=== PATIENT | male | born 1930 | race Caucasian/White ===

== ENCOUNTER 2018-02-07 21:09 | Emergency (ER) | payer MEDICARE, OTHER ==
[~2018-02-07] VITALS: Ht 175.3 cm; Wt 80.3 kg
[~2018-02-07 21:09] MED LIST: ACETAMINOPHEN500 M5 PO; ASPIRIN81 M3 PO; BISACODYL10 M1 RC; CELEBREX200 MG ORAL; CENTRAL VITE F1 EACH PO; CORTEF10 MG ORAL; DEMECLOCYCLINE150 MG PO; DIFLUCAN100 MG ORAL; DOCUSATE SODIU100 M2 ORAL; FLAGYL500 MG ORAL; HEPARIN SO5000 UNIT2 SUBQ; HYDROCORTISONE20 MG ORAL; LEVOFLOXACIN500 MG ORAL; LOVENOX10 M4 SUBQ; PANTOPRAZOLE SO40 MG ORAL; TAMSULOSIN HCL0.4 MG ORAL; ZOFRAN8 MG ORAL; ZOLPIDEM TARTRAT5 MG ORAL
[2018-02-07] MEDS ORDERED: Cephalexin 500mg cap ORAL ONE (22:00)
[2018-02-07] MEDS ORDERED: Phenazopyridine 200mg tab ORAL ONE (22:00)
[2018-02-07 22:26] LABS: APPEARANCE,URINE CLOUDY; BILIRUBIN, URINE NEGATIVE (NEGATIVE); COLOR,URINE PALE YELLOW; GLUCOSE, URINE (UA) NEGATIVE (NEGATIVE); KETONES,URINE NEGATIVE (NEGATIVE); LEUKOCYTE ESTERASE ,URINE 3+ (NEGATIVE); NITRITE,URINE NEGATIVE (NEGATIVE); PH,URINE 6.5 (4.5-8.0); PROTEIN,URINE 2+ (NEGATIVE); UROBILINOGEN,URINE NORMAL MG/DL (0.0-1.0)
[2018-02-07] MEDS ORDERED: PHENAZOPYRIDIN100 MG ORAL (22:52)
[2018-02-07] MEDS ORDERED: KEFLEX500 MG ORAL (22:52)
--- NOTE | 2018-02-07 22:52 | Emergency Room Report ---
History of Present Illness General Chief Complaint: Male Urogenital Problems Source: Patient, Family Member Present Illness HPI Is an 87-year-old male brought in by son with chief complaint of dysuria and frequency. Onset yesterday. No nausea no vomiting. No back pain. No fever. Denies any other complaint. Worse with urination. Allergies: Coded Allergies: No Known Allergies (Unverified , 04/12/15) Patient History Past Medical History: see triage record, old chart reviewed Past Surgical History: other Pertinent Family History: none Social History: Denies: smoking Immunizations: other Reviewed Nursing Documentation: PMH: Agreed, PSxH: Agreed Nursing Documentation-PMH Hx Cardiac Problems: Yes Hx Hypertension: Yes Hx COPD: No - weakness Hx Cancer: No Hx Gastrointestinal Problems: Yes Hx Neurological Problems: No Hx Weakness: Yes Hx Fatigue: Yes Review of Systems Eye: Denies: eye pain, blurred vision ENT: Denies: ear pain, nose congestion, throat swelling Respiratory: Denies: cough, shortness of breath Cardiovascular: Denies: chest pain, palpitations Gastrointestinal: Denies: abdominal pain, diarrhea, nausea, vomiting Genitourinary: Reports: dysuria, frequency Musculoskeletal: Denies: back pain, joint pain Skin: Denies: rash Neurological: Denies: headache, numbness Endocrine: Denies: increased thirst, increased urine Hematologic/Lymphatic: Denies: easy bruising All Other Systems: negative except mentioned in HPI Physical Exam Vital Signs Date Time Temp Pulse Resp B/P (MAP) Pulse Ox O2 Delivery O2 Flow Rate FiO2 02/07/18 21:35 98.1 71 16 184/87 95 Room Air 98.1 vitals with high blood pressure Sp02 EP Interpretation: reviewed, normal General Appearance: well appearing, no apparent distress, alert Head: normocephalic, atraumatic Eyes: bilateral eye PERRL, bilateral eye EOMI ENT: hearing grossly normal, normal pharynx Neck: full range of motion, supple, no meningismus Respiratory: chest non-tender, lungs clear, normal breath sounds Cardiovascular #1: regular rate, rhythm, no murmur Gastrointestinal: normal bowel sounds, non tender, no mass, no organomegaly, no bruit, non-distended Musculoskeletal: back normal, gait/station normal, normal range of motion Psychiatric: mood/affect normal Skin: warm/dry Medical Decision Making Diagnostic Impression: Primary Impression: UTI (lower urinary tract infection) Additional Impression: Hypertension Qualified Codes: I10 - Essential (primary) hypertension ER Course Patient with urinary tract infection. No evidence of pyelonephritis. Better now. We'll discharge home. Last Vital Signs Date Time Temp Pulse Resp B/P (MAP) Pulse Ox O2 Delivery O2 Flow Rate FiO2 02/07/18 21:35 98.1 71 16 184/87 95 Room Air 98.1 Status: improved Disposition: HOME, SELF-CARE Condition: Stable Scripts Phenazopyridine Hcl* (PYRIDIUM*) 100 Mg Tablet 100 MG ORAL THREE TIMES A DAY, #6 TAB Prov: QI CLINE M.D. 02/07/18 Cephalexin* (KEFLEX*) 500 Mg Capsule 500 MG ORAL TID, #21 CAP 0 Refills Prov: QI CLINE M.D. 02/07/18 Referrals: RESHMA YANG (PCP) Patient Instructions: Urinary Tract Infection Additional Instructions: Follow-up with your Dr. in 3-5 days. Your urine will turn an orangy color. Do not be concern. Return if symptom worsen. QI CLINE M.D. Feb 07, 2018 22:52
[2018-02-07 22:58] VITALS: BP 165/85
== END 2018-02-07 22:58 | disposition home or self-care (01) ==
LOC: EMR 21:57
DX: N39.0 Urinary tract infection, site not specified (principal); I10 Essential (primary) hypertension
CPT/HCPCS: 81003; 87086; 87181; 99284

== ENCOUNTER 2018-07-03 20:07 | Inpatient (IN) | payer MEDICARE ==
[~2018-07-03] VITALS: Ht 175.3 cm; Wt 77.1 kg
[~2018-07-03 20:07] MED LIST changes: +KEFLEX500 MG ORAL; +PHENAZOPYRIDIN100 MG ORAL
[2018-07-03] MEDS ORDERED: NKM (20:24)
[2018-07-03] MEDS ORDERED: Azithromycin 500 MG in NS 275 ML IV SCH (20:45)
[2018-07-03] MEDS ORDERED: Albuterol ud Inhalation HHN ONE (20:45)
[2018-07-03] MEDS ORDERED: cefTRIAXone 1 GM in NS 55 ML IV SCH (20:45)
[2018-07-03 21:13] LABS: BASOPHILS % (AUTO) 1.3 % (0.0-2.0); EOSINOPHILS % (AUTO) 8.7 % (0.0-3.0); HEMATOCRIT 37.3 % (42.0-52.0); HEMOGLOBIN 12.5 G/DL (14.2-18.0); LYMPHOCYTES % (AUTO) 18.3 % (20.0-45.0); MEAN CORPUSCULAR VOLUME 98 FL (80-99); MONOCYTES % (AUTO) 8.2 % (1.0-10.0); NEUTROPHILS % (AUTO) 63.5 % (45.0-75.0); PLATELET COUNT 216 K/UL (150-450); RED BLOOD COUNT 3.81 M/UL (4.70-6.10); RED CELL DISTRIBUTION WIDTH 10.9 % (11.6-14.8); WHITE BLOOD COUNT 9.1 K/UL (4.8-10.8)
[2018-07-03 21:18] LABS: ANION GAP 8 mmol/L (5-15); BLOOD UREA NITROGEN 18 mg/dL (7-18); CALCIUM 9.5 MG/DL (8.5-10.1); CARBON DIOXIDE 26 MMOL/L (21-32); CHLORIDE 101 MMOL/L (98-107); POTASSIUM 4.3 MMOL/L (3.5-5.1); SODIUM 134 MMOL/L (136-145)
[2018-07-03 21:29] LABS: ALANINE AMINOTRANSFERASE 16 U/L (12-78); ALBUMIN 3.6 G/DL (3.4-5.0); ALBUMIN/GLOBULIN RATIO 0.8 (1.0-2.7); ALKALINE PHOSPHATASE 56 U/L (46-116); ASPARTATE AMINO TRANSFERASE 16 U/L (15-37); BILIRUBIN,TOTAL 0.3 MG/DL (0.2-1.0)
[2018-07-03] MEDS ORDERED: Solu-MEDROL 125mg Inj IVP ONE (21:30)
[2018-07-03] MEDS ORDERED: Isovue-370 150ml vial INJ PRN (21:30)
[2018-07-03 21:50] LABS: APPEARANCE,URINE CLEAR; BILIRUBIN, URINE NEGATIVE (NEGATIVE); COLOR,URINE YELLOW; GLUCOSE, URINE (UA) NEGATIVE (NEGATIVE); KETONES,URINE NEGATIVE (NEGATIVE); LEUKOCYTE ESTERASE ,URINE 3+ (NEGATIVE); NITRITE,URINE NEGATIVE (NEGATIVE); PH,URINE 6.5 (4.5-8.0); PROTEIN,URINE 1+ (NEGATIVE); UROBILINOGEN,URINE NORMAL (NORMAL)
[2018-07-03] MEDS ORDERED: MULTIVITAMINS1 EAC2 ORAL (22:26)
[2018-07-03 22:37] VITALS: BP 119/57
--- NOTE | 2018-07-03 22:40 | Emergency Room Report ---
History of Present Illness General Chief Complaint: Dyspnea/Respdistress Source: Patient Present Illness HPI Patient is an 88-year-old male brought in by family member after increased difficulty breathing. The patient noted have increased difficulty breathing over the past few days associated with frothy sputum. The patient noticed increased leg swelling bilaterally. This had gradual onset. He reported having increased swelling since it began becoming hot. The patient had no known prior lung history. He does not use oxygen at home. The patient does not take inhalers regularly. He reported having increased difficulty breathing for approximately one week. Allergies: Coded Allergies: No Known Allergies (Unverified , 04/12/15) Patient History Past Medical History: see triage record Reviewed Nursing Documentation: PMH: Agreed; PSxH: Agreed Nursing Documentation-PMH Hx Cardiac Problems: Yes Hx Hypertension: Yes Hx COPD: No - weakness Hx Cancer: No Hx Gastrointestinal Problems: Yes Hx Neurological Problems: No Hx Weakness: Yes Hx Fatigue: Yes Review of Systems All Other Systems: negative except mentioned in HPI Physical Exam Vital Signs Date Time Temp Pulse Resp B/P (MAP) Pulse Ox O2 Delivery O2 Flow Rate FiO2 07/03/18 20:18 97.8 71 20 91/48 91 Room Air 97.9 07/03/18 20:49 2.0 28 Sp02 EP Interpretation: reviewed, normal General Appearance: normal inspection, well appearing, no apparent distress, alert Head: atraumatic ENT: normal ENT inspection, hearing grossly normal, normal voice Neck: normal inspection, full range of motion, supple, no bony tend Respiratory: normal inspection, no respiratory distress, no retraction, wheezing Cardiovascular #1: regular rate, rhythm, edema Gastrointestinal: normal inspection, normal bowel sounds, non tender, soft, no guarding, no hernia Genitourinary: no CVA tenderness Musculoskeletal: normal inspection, back normal, normal range of motion Neurologic: normal inspection, alert, responsive, speech normal Psychiatric: normal inspection, judgement/insight normal, mood/affect normal Skin: no rash, other - left leg rash Medical Decision Making Diagnostic Impression: Primary Impression: Pneumonia Additional Impression: Hypoxia ER Course Patient presented for shortness of breath.Differential included but was not limited to anemia, pneumonia, pneumothorax, myocardial infarction, pericardial effusion, congestive heart failure, acidosisBecause of complexity of patient's case laboratory testing and imaging studies were ordered.The patient was given IV steroids as well as breathing treatment. Chest x-ray one view interpreted by me showed bilateral basal infiltrates with normal cardiac size. The patient was given IV antibiotics for possible infiltrate. CT of the chest was ordered due to patient's recent leg swelling and possible pulmonary embolism.The patient was noted to have remote history of smoking cigarettes.Dr. Luis Daniel Luna was contacted for inpatient management pending CT. CT the chest read by radiology showed no evidence of pulmonary embolism no thoracic aortic dissection or aneurysm subpleural reticular and cystic changes throughout both lungs subcentimeter mediastinal and hilar lymph nodes the layering stones and sludge within the gallbladder Labs Test 07/03/18 20:50 07/03/18 21:35 White Blood Count 9.1 K/UL (4.8-10.8) Red Blood Count 3.81 M/UL (4.70-6.10) Hemoglobin 12.5 G/DL (14.2-18.0) Hematocrit 37.3 % (42.0-52.0) Mean Corpuscular Volume 98 FL (80-99) Mean Corpuscular Hemoglobin 32.7 PG (27.0-31.0) Mean Corpuscular Hemoglobin Concent 33.4 G/DL (32.0-36.0) Red Cell Distribution Width 10.9 % (11.6-14.8) Platelet Count 216 K/UL (150-450) Mean Platelet Volume 5.5 FL (6.5-10.1) Neutrophils (%) (Auto) 63.5 % (45.0-75.0) Lymphocytes (%) (Auto) 18.3 % (20.0-45.0) Monocytes (%) (Auto) 8.2 % (1.0-10.0) Eosinophils (%) (Auto) 8.7 % (0.0-3.0) Basophils (%) (Auto) 1.3 % (0.0-2.0) Prothrombin Time 10.2 SEC (9.30-11.50) Prothromb Time International Ratio 1.0 (0.9-1.1) Activated Partial Thromboplast Time 27 SEC (23-33) Sodium Level 134 MMOL/L (136-145) Potassium Level 4.3 MMOL/L (3.5-5.1) Chloride Level 101 MMOL/L (98-107) Carbon Dioxide Level 26 MMOL/L (21-32) Anion Gap 8 mmol/L (5-15) Blood Urea Nitrogen 18 mg/dL (7-18) Creatinine 1.0 MG/DL (0.55-1.30) Estimat Glomerular Filtration Rate mL/min (>60) Glucose Level 98 MG/DL (74-106) Calcium Level 9.5 MG/DL (8.5-10.1) Total Bilirubin 0.3 MG/DL (0.2-1.0) Aspartate Amino Transf (AST/SGOT) 16 U/L (15-37) Alanine Aminotransferase (ALT/SGPT) 16 U/L (12-78) Alkaline Phosphatase 56 U/L (46-116) Troponin I 0.000 ng/mL (0.000-0.056) Pro-B-Type Natriuretic Peptide 156 pg/mL (0-125) Total Protein 8.1 G/DL (6.4-8.2) Albumin 3.6 G/DL (3.4-5.0) Globulin 4.5 g/dL Albumin/Globulin Ratio 0.8 (1.0-2.7) Urine Color Yellow Urine Appearance Clear Urine pH 6.5 (4.5-8.0) Urine Specific [place] 1.010 (1.005-1.035) Urine Protein 1+ (NEGATIVE) Urine Glucose (UA) Negative (NEGATIVE) Urine Ketones Negative (NEGATIVE) Urine Occult Blood 3+ (NEGATIVE) Urine Nitrite Negative (NEGATIVE) Urine Bilirubin Negative (NEGATIVE) Urine Urobilinogen Normal MG/DL (NORMAL) Urine Leukocyte Esterase 3+ (NEGATIVE) Urine RBC 5-10 /HPF (0 - 0) Urine WBC 2-4 /HPF (0 - 0) Urine Squamous Epithelial Cells None /LPF (NONE/OCC) Urine Bacteria Few /HPF (NONE) Last Vital Signs Date Time Temp Pulse Resp B/P (MAP) Pulse Ox O2 Delivery O2 Flow Rate FiO2 07/03/18 21:19 72 16 94 Nasal Cannula 2.0 28 07/03/18 20:18 97.8 91/48 97.9 Status: unchanged Disposition: ADMITTED INPATIENT Condition: Serious Referrals: RESHMA YANG (PCP) Cyrus Clark MD Jul 03, 2018 22:40
[2018-07-03] MEDS ORDERED: Zolpidem 5mg tab ORAL PRN (23:30)
[2018-07-03] MEDS: Heparin 5000 units/ml inj SUBQ SCH (23:56)
[2018-07-04] VITALS: BP 127/75
--- NOTE | 2018-07-04 00:45 | Consultation ---
DATE OF CONSULTATION: 07/03/2018 CARDIOLOGY CONSULTATION CONSULTING PHYSICIAN: Trino Gaines M.D. REFERRING PHYSICIAN: Luis Daniel Luna M.D. REASON FOR CONSULTATION: Conduction system disease of the heart in the setting of acute respiratory insufficiency. HISTORY: This is an 88-year-old white male, who is a former smoker and has some degree of obstructive lung disease, who presented to the hospital with progressive cough, congestion, and shortness of breath. He has not had any chest pain. No leg swelling. He has been compliant with medications. He has not had any fevers or chills, but has had increasing sputum production. PAST MEDICAL HISTORY: Includes hypertension, prostatic hypertrophy, hyponatremia, insomnia, osteoarthritis. ALLERGIES: None. MEDICATIONS: Prior to admission, reviewed and reconciled. FAMILY HISTORY: Noncontributory. SOCIAL HISTORY: Former smoker. Social alcohol. No substance abuse. REVIEW OF SYSTEMS: No loss of vision or hearing. No history of diabetes or thyroid disorder. No history of seizure or stroke. No history of heart attack. No history of dizziness, loss of consciousness, or weakness. No history of irregular heartbeats. No history of rheumatic heart disease. No history of blood clots in the legs. He does have morning cough. He has been a smoker in the past. He does have some degree of "asthma." No history of blood clotting. No history of melena, bright red blood per rectum, or colon cancer. No history of prostate cancer. He does have prostatic hypertrophy. PHYSICAL EXAMINATION: VITAL SIGNS: Blood pressure 119/57, pulse 76, respiratory rate 20, afebrile, room air oxygen saturations are 94%. HEENT: Conjunctivae pink. Sclerae are anicteric. Oropharynx clear. NECK: Supple. No accessory muscle use. No adenopathy. No jugular venous distention. LUNGS: With coarse breath sounds and rhonchi. CARDIAC: Regular rhythm and rate. Normal S1, S2 with a fourth heart sound. ABDOMEN: Soft, nontender. EXTREMITIES: No edema. Good distal pulses. NEUROLOGIC: Nonfocal. LABORATORY DATA: White count 9, hemoglobin 12.5. Sodium 134, potassium 4.3, bicarbonate 26, BUN 18, creatinine 1. Natriuretic peptide 156. Troponin zero. Albumin 3.6. Urinalysis with only 2-4 white cells, 5-10 red cells. Chest x-ray reveals bilateral basilar infiltrates. CT angiogram of the chest was negative. EKG reveals sinus rhythm, first-degree AV block, intraventricular conduction delay. IMPRESSION: 1. Community-acquired pneumonia. 2. Paroxysmal bronchospasm. 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 5. History of hypertension. 6. History of on demeclocycline. PLAN: 1. Cardiac monitoring. 2. Broad-spectrum antibiotics. 3. Respiratory hygiene. 4. Bronchodilators. 5. Sputum cultures. 6. Hold antihypertensives. 7. Cautiously hydrate with saline. 8. DVT prophylaxis. 9. Continue aspirin prophylaxis. 10. Further recommendations to follow based on clinical course. Trino Gaines M.D. DR: Jena JOB#: [id number] CC: Jimbo Peres M.D.; Fax#: [phone]
[2018-07-04] MEDS: Albuterol/Ipratropium 3ml neb HHN SCH ×5 (02:53→21:21)
[2018-07-04 04:00] VITALS: BP 106/57
[2018-07-04 06:11] LABS: HEMATOCRIT 36.8 % (42.0-52.0); HEMOGLOBIN 12.7 G/DL (14.2-18.0); MEAN CORPUSCULAR VOLUME 98 FL (80-99); PLATELET COUNT 207 K/UL (150-450); RED BLOOD COUNT 3.74 M/UL (4.70-6.10); RED CELL DISTRIBUTION WIDTH 10.9 % (11.6-14.8); WHITE BLOOD COUNT 5.2 K/UL (4.8-10.8)
[2018-07-04 06:57] LABS: ALANINE AMINOTRANSFERASE 15 U/L (12-78); ALBUMIN 3.3 G/DL (3.4-5.0); ALBUMIN/GLOBULIN RATIO 0.7 (1.0-2.7); ALKALINE PHOSPHATASE 52 U/L (46-116); ANION GAP 9 mmol/L (5-15); ASPARTATE AMINO TRANSFERASE 18 U/L (15-37); BILIRUBIN,TOTAL 0.3 MG/DL (0.2-1.0); BLOOD UREA NITROGEN 19 mg/dL (7-18); CARBON DIOXIDE 27 MMOL/L (21-32); CHLORIDE 102 MMOL/L (98-107); CREATININE 1.2 MG/DL (0.55-1.30); POTASSIUM 4.2 MMOL/L (3.5-5.1); SODIUM 138 MMOL/L (136-145)
[2018-07-04 08:00] VITALS: BP 126/63
[2018-07-04] MEDS ORDERED: Cefepime HCl 1 GM in D5W 55 ML IVPB SCH (09:00)
[2018-07-04] MEDS: Solu-MEDROL 40mg Inj IVP SCH ×2 (09:16→20:48)
[2018-07-04] MEDS: Aspirin Baby 81mg ORAL SCH (09:16)
[2018-07-04] MEDS: Cefepime HCl 1 GM in D5W 55 ML IVPB SCH ×2 (09:17→20:48)
[2018-07-04] MEDS: Heparin 5000 units/ml inj SUBQ SCH ×2 (09:18→21:58)
--- NOTE | 2018-07-04 10:10 | Diagnostic Imaging Report ---
Indication: Shortness of breath Technique: CT pulmonary angiogram performed utilizing automated exposure control with intravenous contrast. Axial, sagittal and coronal reconstructions were obtained. 3-D volumetric reconstructions were also performed. CT dose: Total DLP 754.92 mGycm; CTDI vol 20.91 mGy Comparison: No prior CT angiogram the chest available for comparison. Correlation made to images of the chest from CT of the chest/abdomen and pelvis 04/17/2015 Findings: There is adequate opacification of the pulmonary arteries. There is no pulmonary embolism. The main pulmonary artery is normal in caliber. Thoracic aorta normal in caliber with overall mild atherosclerotic calcification. No evidence of aortic dissection. Visualized portions of the common carotid and subclavian arteries are patent and normal in caliber bilaterally, with some atherosclerotic calcifications in the origins. Bilateral vertebral arteries are patent and normal in caliber. Is portions of the abdominal aorta are normal in caliber. There is subpleural reticular and cystic changes throughout the lungs with a peripheral and basilar predominance consistent with pulmonary fibrosis and similar to the prior exam but slightly progressed. There is some scattered foci of bronchial wall thickening and mucous plugging, most pronounced in the bilateral lower lobes. There is no pleural effusion or pneumothorax. Heart size within normal limits and stable compared to the prior exam. No cardial effusion. There are small nonspecific subcentimeter mediastinal lymph nodes. Imaged portions of the thyroid grossly unremarkable. There is interposition of the colon anterior to the liver. There is layering sludge partially visualized in the gallbladder. No CT evidence to suggest acute cholecystitis. Simple partially visualized in the upper pole the left kidney. Mild dilatation of the visualized portions of the left-sided collecting system, similar to the prior exam. There is extensive degenerative change of the bilateral shoulders and thoracic spine. There are unchanged compression deformities of the T11 and T9 vertebral bodies. No acute osseous abnormality is identified. IMPRESSION: * No pulmonary embolism. * No thoracic aortic aneurysm or dissection. * Pulmonary fibrosis with peripheral and basilar predominance, slightly progressed compared to prior exam of 04/17/2015. * Scattered foci of bronchial wall thickening and some mucous plugging in the bilateral lower lobes. Consider bronchitis. Correlate clinically. * Layering stones and sludge within the partially visualized gallbladder. No CT evidence to suggest acute cholecystitis. * Degenerative change of the spine with unchanged compression deformities of the T9 and T11 vertebral bodies. The CT scanner at [facility] is accredited by the [employer] and the scans are performed using protocols designed to limit radiation exposure to as low as reasonably achievable to attain images of sufficient resolution adequate for diagnostic evaluation.
--- NOTE | 2018-07-04 10:14 | Diagnostic Imaging Report ---
Indication: Shortness of breath Technique: XRAY Chest 1v Comparison: 04/26/2015 Findings: Heart size and mediastinal contours stable. Atherosclerotic calcification is again noted in the aorta. Interstitial and linear opacities again noted in the lungs with a peripheral and basilar predominance system with pulmonary fibrosis noted on prior chest CT. These findings have progressed slightly compared to the prior exam. Some areas of increased density in the bilateral bases likely relate to areas of increased confluent fibrosis however superimposed infection not excluded. No pneumothorax or definite pleural effusion. There are degenerative changes of the shoulders and multilevel degenerative changes of the spine with some unchanged compression deformities in the lower thoracic spine. IMPRESSION: Findings consistent with pulmonary fibrosis noted on prior CT, with interval progression. Some increased density at the bilateral bases possibly related to areas of confluent fibrosis however superimposed infection not excluded. Correlate clinically.
[2018-07-04 12:00] VITALS: BP 123/64
[2018-07-04] MEDS ORDERED: Vitamin A&D Oint 2oz Tube TOPIC PRN (12:30)
[2018-07-04 16:00] VITALS: BP 125/66
[2018-07-04 20:00] VITALS: BP 126/71
[2018-07-04] MEDS ORDERED: Tamsulosin 0.4mg cap ORAL SCH (21:00)
[2018-07-04] MEDS ORDERED: Azithromycin 500 MG in D5W 275 ML IV SCH (22:00)
--- NOTE | 2018-07-04 23:15 | History and Physical Report ---
DATE OF ADMISSION: 07/03/2018 HISTORY OF PRESENT ILLNESS: This is an 88-year-old male, who was brought in from his home with complaints of chest congestion. The patient was seen and worked up and found to have evidence of pneumonia. He is admitted to the hospital. He is currently on oxygen. The patient reports that he had been feeling unwell for the last few days with chest congestion and shortness of breath. He also reported a low-grade fever. PAST MEDICAL HISTORY: Hypertension, BPH, insomnia, and osteoarthrosis. HOME MEDICATIONS: Includes Flomax and Ambien only. ALLERGIES: None reported. SOCIAL HISTORY: He has been a smoker in the past. Denies substance abuse or alcohol. REVIEW OF SYSTEMS: Denies any headaches, hematemesis, melena, or hematochezia. PHYSICAL EXAMINATION: GENERAL: Reveals an elderly male. HEENT: Unremarkable. CHEST: Clear breath sounds bilaterally. ABDOMEN: Soft. EXTREMITIES: There is no edema. NEUROLOGIC: Nonfocal. LABORATORY DATA: Lab testing shows white count of 9000 and hemoglobin of 12. Creatinine of 1. X-ray of the chest shows bibasilar infiltrates. CT angio was obtained, which was negative. EKG shows first-degree AV block. IMPRESSION: 1. Pneumonia. 2. Bronchospastic lung disease. 3. Questionable underlying chronic obstructive pulmonary disease. 4. Hypertension. 5. Chronic hyponatremia. DISCUSSION: Continue home medications. I will initiate cardiac monitoring, broad-spectrum antibiotics, pulmonary hygiene, and oxygen. We will follow carefully. He is presently on cefepime and azithromycin. Check laboratories in a.m. Luis Daniel Luna M.D. DR: KARRI JOB#: [id number] CC:
[2018-07-05] VITALS: BP 123/73
[2018-07-05] MEDS: Albuterol/Ipratropium 3ml neb HHN SCH ×4 (00:30→10:25)
[2018-07-05 04:00] VITALS: BP 128/70
[2018-07-05 07:37] LABS: HEMATOCRIT 32.8 % (42.0-52.0); HEMOGLOBIN 11.2 G/DL (14.2-18.0); MEAN CORPUSCULAR VOLUME 98 FL (80-99); PLATELET COUNT 209 K/UL (150-450); RED BLOOD COUNT 3.33 M/UL (4.70-6.10); WHITE BLOOD COUNT 9.8 K/UL (4.8-10.8)
[2018-07-05 07:51] LABS: ANION GAP 9 mmol/L (5-15); BLOOD UREA NITROGEN 20 mg/dL (7-18); CALCIUM 8.4 MG/DL (8.5-10.1); CARBON DIOXIDE 25 MMOL/L (21-32); CHLORIDE 104 MMOL/L (98-107); CREATININE 1.1 MG/DL (0.55-1.30); POTASSIUM 3.8 MMOL/L (3.5-5.1); SODIUM 138 MMOL/L (136-145)
[2018-07-05 08:00] VITALS: BP 128/64
--- NOTE | 2018-07-05 08:35 | Pulmonology Progress Note ---
Assessment/Plan Assessment/Plan IMPRESSION: 1. Doubt pneumonia. CT chest shows pulmonary fibrosis 2. Bronchospastic lung disease. 3. Suspect pulmonary fibrosis 4. Hypertension. 5. Chronic hyponatremia. DISCUSSION: Continue home medications. DC home. Empiric azithromycin. Check RA SaO2 Subjective Interval Events: Feeling better Constitutional: Reports: no symptoms HEENT: Repors: no symptoms Respiratory: Reports: dry cough Cardiovascular: Reports: no symptoms Gastrointestinal/Abdominal: Reports: no symptoms Genitourinary: Reports: no symptoms Allergies: Coded Allergies: No Known Allergies (Unverified , 04/12/15) Objective Last 24 Hour Vital Signs Date Time Temp Pulse Resp B/P (MAP) Pulse Ox O2 Delivery O2 Flow Rate FiO2 07/05/18 07:35 95 Nasal Cannula 2.0 07/05/18 07:35 Nasal Cannula 2.0 28 07/05/18 07:35 Nasal Cannula 2.0 28 07/05/18 07:35 Nasal Cannula 2.0 28 07/05/18 04:00 98.1 87 21 128/70 (89) 93 98.1 07/05/18 04:00 Nasal Cannula 2.0 Nasal Cannula 2.0 07/05/18 03:56 84 07/05/18 03:37 82 18 96 Nasal Cannula 2.0 28 07/05/18 03:30 75 18 95 Nasal Cannula 2.0 28 07/05/18 00:00 88 18 96 Nasal Cannula 2.0 28 07/05/18 00:00 82 18 94 Nasal Cannula 2.0 28 07/05/18 00:00 Nasal Cannula 2.0 Nasal Cannula 2.0 07/05/18 00:00 97.8 75 21 123/73 (90) 95 97.8 07/04/18 20:00 93 Nasal Cannula 2.0 28 07/04/18 20:00 07/04/18 20:00 97.7 79 20 126/71 (89) 95 97.7 07/04/18 20:00 81 18 93 Nasal Cannula 2.0 28 07/04/18 20:00 Nasal Cannula 2.0 28 07/04/18 20:00 Nasal Cannula 2.0 Nasal Cannula 2.0 07/04/18 20:00 84 18 94 Nasal Cannula 2.0 28 07/04/18 20:00 83 07/04/18 16:00 Nasal Cannula 2.0 Nasal Cannula 2.0 07/04/18 16:00 97.2 84 19 125/66 (85) 95 97.2 07/04/18 16:00 89 07/04/18 15:27 83 16 99 Nasal Cannula 2.0 28 07/04/18 15:18 28 07/04/18 15:18 80 16 96 Nasal Cannula 2.0 28 07/04/18 12:00 98.1 88 18 123/64 (83) 96 98.1 07/04/18 12:00 85 07/04/18 12:00 Nasal Cannula 2.0 Nasal Cannula 2.0 07/04/18 10:43 78 16 98 Nasal Cannula 2.0 28 07/04/18 10:33 82 16 95 Nasal Cannula 2.0 28 07/04/18 10:33 28 Intake and Output 07/04/18 07/05/18 19:00 07:00 Intake Total 1727 ml 1075 ml Output Total 780 ml Balance 1727 ml 295 ml Intake Oral 500 ml 245 ml IV Total 1227 ml 830 ml Output Urine Total 780 ml # Voids 3 2 General Appearance: no acute distress HEENT: normocephalic Respiratory/Chest: chest wall non-tender, crackles/rales Cardiovascular: normal peripheral pulses, normal rate Abdomen: normal bowel sounds, soft, non tender Microbiology Date/Time Source Procedure Growth Status 07/03/18 21:15 Blood Blood Culture - Preliminary NO GROWTH AFTER 24 HOURS Resulted 07/03/18 21:00 Blood Blood Culture - Preliminary NO GROWTH AFTER 24 HOURS Resulted 07/04/18 06:00 Sputum Gram Stain - Final Resulted 07/04/18 06:00 Sputum Culture - Preliminary Gram Positive Cocci Resulted Laboratory Tests 07/05/18 06:07: White Blood Count 9.8#, Red Blood Count 3.33L, Hemoglobin 11.2L, Hematocrit 32.8L, Mean Corpuscular Volume 98, Mean Corpuscular Hemoglobin 33.6H, Mean Corpuscular Hemoglobin Concent 34.2, Red Cell Distribution Width 11.0L, Platelet Count 209, Mean Platelet Volume 5.7L, Neutrophils (%) (Auto) , Lymphocytes (%) (Auto) , Monocytes (%) (Auto) , Eosinophils (%) (Auto) , Basophils (%) (Auto) , Differential Total Cells Counted 100, Neutrophils % ( Manual) 89H, Lymphocytes % (Manual) 6L, Monocytes % (Manual) 5, Eosinophils % ( Manual) 0, Basophils % (Manual) 0, Band Neutrophils 0, Platelet Estimate Adequate, Platelet Morphology Normal, Macrocytosis 1+, Sodium Level 138, Potassium Level 3.8, Chloride Level 104, Carbon Dioxide Level 25, Anion Gap 9, Blood Urea Nitrogen 20H, Creatinine 1.1, Estimat Glomerular Filtration Rate , Glucose Level 160H, Calcium Level 8.4L Current Medications Medications (Trade) Dose Ordered Sig/Katarzyna Route PRN Reason Start Time Stop Time Status Last Admin Dose Admin Albuterol/ Ipratropium (Albuterol/ Ipratropium) 3 ml Q4HRT HHN 07/04/18 03:00 07/09/18 02:59 07/05/18 03:30 Aspirin (ASA) 81 mg DAILY ORAL 07/04/18 09:00 08/03/18 08:59 07/04/18 09:16 Azithromycin 500 mg/Dextrose 275 ml @ 275 mls/hr Q24HRS IV 07/04/18 22:00 07/09/18 22:59 07/04/18 21:58 Cefepime HCl 1 gm/ Dextrose 55 ml @ 110 mls/hr Q12HR IVPB 07/04/18 09:00 07/11/18 08:59 07/04/18 20:48 Heparin Sodium (Porcine) (Heparin 5000 units/ml) 5,000 units EVERY 12 HOURS SUBQ 07/03/18 23:30 08/02/18 23:29 07/04/18 21:58 Methylprednisolone Sodium Succinate (Solu-MEDROL) 40 mg EVERY 12 HOURS IVP 07/04/18 09:00 08/03/18 08:59 07/04/18 20:48 Pantoprazole (Protonix) 40 mg DAILY ORAL 07/04/18 09:00 08/03/18 08:59 07/04/18 09:16 Tamsulosin HCl (Flomax) 0.4 mg BEDTIME ORAL 07/04/18 21:00 08/03/18 20:59 07/04/18 21:58 Vitamin A/Vitamin D (A & D Oint) 1 applic TIDPRN PRN TOPIC To Patient Comfort 07/04/18 12:30 08/03/18 12:29 Zolpidem Tartrate (Ambien) 5 mg HSPRN PRN ORAL Insomnia 07/03/18 23:30 07/10/18 23:29 Luis Daniel Luna MD Jul 05, 2018 08:34
[2018-07-05] MEDS ORDERED: AZITHROMYCIN500 MG ORAL (08:40)
[2018-07-05] MEDS: Heparin 5000 units/ml inj SUBQ SCH (09:49)
[2018-07-05] MEDS: Solu-MEDROL 40mg Inj IVP SCH (09:50)
[2018-07-05] MEDS: Aspirin Baby 81mg ORAL SCH (09:50)
--- NOTE | 2018-07-05 11:45 | Progress Note ---
DATE: 07/04/2018 CARDIOLOGY PROGRESS NOTE SUBJECTIVE: The patient still has cough and congestion, but feels better. No chest pain. Monitored rhythm sinus. PHYSICAL EXAMINATION: VITAL SIGNS: Afebrile, blood pressure 122/64, pulse 85, and respiratory rate 18. NECK: Supple. LUNGS: With coarse breath sounds and rhonchi. CARDIAC: Regular rhythm and rate. Normal S1, S2 with a fourth heart sound. ABDOMEN: Soft. EXTREMITIES: Trace edema. LABORATORY DATA: White count 5.2 and hemoglobin 12.7. Potassium 4.2, BUN 19, creatinine 1.2, glucose 206, magnesium 1.8. Albumin 3.3. IMPRESSION: 1. Community-acquired pneumonia. 2. Bronchospastic lung disease. 3. Possible COPD. 4. Hypertensive heart disease. 5. Chronic hyponatremia. 6. 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 PLAN: Cardiac monitoring. Antimicrobials. Respiratory hygiene. Bronchodilators. Followup culture results. Restart antihypertensive in a stepwise fashion. Discontinue IV fluids. Maintain aspirin prophylaxis as well as DVT prophylaxis while immobilized. Nasal oxygen as needed. Trino Gaines M.D. DR: SAE JOB#: [id number] CC:
[2018-07-05] MEDS ORDERED: Tubing IV Secondary IV ONE (12:19)
--- NOTE | 2018-07-05 16:09 | Cardiology Report ---
APPROVED REPORT EKG Measurement Heart [id number] NM [id number] Sinus rhythm with 1st degree AV block Incomplete right bundle branch block Borderline ECG
[2018-07-05] MEDS ORDERED: Cefepime HCl 1 GM in D5W 55 ML IVPB SCH (21:00)
--- NOTE | 2018-07-06 08:46 | Discharge Summary ---
Discharge Summary Discharge Summary _ DATE OF ADMISSION: 07/03/2018 DATE OF DISCHARGE: 07/05/2018 CONSULTANTS: Dr. Trino Gaines BRIEF HOSPITAL COURSE: Patient is an 88-year-old male, was brought in from home with complaints of chest congestion. He has medical history significant for hypertension, BPH, insomnia and osteoarthrosis. Patient noted to have increased difficulty breathing for past few days associated with frothy sputum. He noticed increased leg swelling bilaterally. He had difficulty of breathing for approximately one week. He denied any prior lung history, he does not use oxygen at home and is not on any inhalers regularly. On evaluation at ED, chest x-ray showed bilateral basal infiltrates. Blood work did not show any leukocytosis. BNP was 156, troponin was negative. CT of the chest showed no evidence of pulmonary embolism, no aortic aneurysm or dissection; pulmonary fibrosis with peripheral and basilar predominance and scattered foci of bronchial wall thickening and mucous plugging in bilateral lower lobes. He was admitted for evaluation of pneumonia and bronchospastic lung disease. He was given pulmonary hygiene and oxygen. He was continued on broad-spectrum antibiotic cefepime and azithromycin. He was placed on Solu-Medrol 40 mg IV every 12 hours. EKG showed sinus rhythm with first-degree AV block and intraventricular conduction delay. Dr. Gaines was consulted for evaluation of conduction system disease. Telemetry data showed sinus rhythm. He was continued on empiric azithromycin by mouth. Chest is CT showed pulmonary fibrosis, doubt pneumonia. He was saturating well. He was eventually cleared for discharge home. FINAL DIAGNOSES: Doubt pneumonia. CT chest showed pulmonary fibrosis. 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 DISCHARGE MEDICATIONS: Refer to Discharge Medication List. Continue with po azithromycin for 4 more days. DISCHARGE INSTRUCTIONS: Follow up with PCP in a week. I have been assigned to dictate discharge summary on this account, and I was not involved in the patient's management. Daria Anna NP Jul 06, 2018 08:46
--- NOTE | 2018-07-07 03:45 | Progress Note ---
DATE: 07/05/2018 CARDIOLOGY PROGRESS NOTE Late entry for 07/05/2018. SUBJECTIVE: The patient is much improved. Less cough. No shortness of breath. No chest pain. He remains afebrile. OBJECTIVE: VITAL SIGNS: Blood pressure 128/64, pulse 84, respirations 18, and room air oxygen saturation is 96%. LUNGS: Good breath sounds. No wheezing. CARDIAC: Regular rhythm and rate. Normal S1, S2. ABDOMEN: Soft. EXTREMITIES: No edema. LABORATORY DATA: Cultures remain notable for MRSA of the sputum. White count 9.8 and hemoglobin 11.2. Chemistry panel, BUN 20, creatinine 1.1, and potassium 3.8. IMPRESSION: 1. Pulmonary fibrosis. 2. Bronchospastic lung disease. 3. Hypertensive heart disease. 4. Chronic hyponatremia. 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 5. Hypertensive heart disease with adequate blood pressure control. 6. 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 PLAN: 1. Complete antibiotics. 2. Bronchodilators. 3. Maintain current anti-platelet therapy. 4. No additional cardiovascular workup planned at this time. 5. Outpatient followup. Trino Gaines M.D. DR: CAITLIN JOB#: [id number] CC:
== END 2018-07-05 12:20 | disposition home health service (06) | DRG 196 ==
LOC: EMR 21:07 → 2W 21:09 → EDBEDREQ 22:08 → 2E 07-04 23:55
DX: J84.10 Pulmonary fibrosis, unspecified (principal); J18.9 Pneumonia, unspecified organism; E87.1 Hypo-osmolality and hyponatremia; Z87.891 Personal history of nicotine dependence; N40.0 Benign prostatic hyperplasia without lower urinary tract symptoms; M19.90 Unspecified osteoarthritis, unspecified site; J98.01 Acute bronchospasm; J44.9 Chronic obstructive pulmonary disease, unspecified; I11.9 Hypertensive heart disease without heart failure
CPT/HCPCS: 36415; 71045; 71275; 80048; 80053; 81003; 83735; 83880; 84443; 84484; 85007; 85025; 85610; 85730; 87040; 87070; 87181; 87205; 93005; 94640; 94664; 94760; J7620

== ENCOUNTER 2018-10-31 13:50 | Emergency (ER) | payer MEDICARE ==
[~2018-10-31] VITALS: Ht 167.6 cm; Wt 81.6 kg
[~2018-10-31 13:50] MED LIST changes: +AZITHROMYCIN500 MG ORAL; +MULTIVITAMINS1 EAC2 ORAL; +NKM
[2018-10-31 14:10] VITALS: BP 125/59
[2018-10-31] MEDS ORDERED: Sodium Chloride 500ML 500 ML IV ONE (14:12)
[2018-10-31] MEDS ORDERED: Albuterol ud Inhalation HHN ONE (14:15)
[2018-10-31] MEDS ORDERED: Ipratropium 0.02% Inh Soln 2.5ml UD HHN ONE (14:15)
[2018-10-31 15:17] LABS: BASOPHILS % (AUTO) 1.3 % (0.0-2.0); EOSINOPHILS % (AUTO) 0.5 % (0.0-3.0); HEMATOCRIT 39.4 % (42.0-52.0); HEMOGLOBIN 12.7 G/DL (14.2-18.0); LYMPHOCYTES % (AUTO) 9.3 % (20.0-45.0); MEAN CORPUSCULAR VOLUME 78 FL (80-99); MONOCYTES % (AUTO) 6.1 % (1.0-10.0); NEUTROPHILS % (AUTO) 82.9 % (45.0-75.0); PLATELET COUNT 129 K/UL (150-450); RED BLOOD COUNT 5.07 M/UL (4.70-6.10); RED CELL DISTRIBUTION WIDTH 12.6 % (11.6-14.8); WHITE BLOOD COUNT 10.1 K/UL (4.8-10.8)
[2018-10-31 15:22] LABS: APPEARANCE,URINE CLEAR; BILIRUBIN, URINE NEGATIVE (NEGATIVE); GLUCOSE, URINE (UA) NEGATIVE (NEGATIVE); KETONES,URINE NEGATIVE (NEGATIVE); LEUKOCYTE ESTERASE ,URINE NEGATIVE (NEGATIVE); NITRITE,URINE NEGATIVE (NEGATIVE); PH,URINE 6 (4.5-8.0); PROTEIN,URINE 2+ (NEGATIVE); UROBILINOGEN,URINE NORMAL MG/DL (0.0-1.0)
[2018-10-31 15:23] LABS: ANION GAP 9 mmol/L (5-15); BLOOD UREA NITROGEN 24 mg/dL (7-18); CALCIUM 8.9 MG/DL (8.5-10.1); CARBON DIOXIDE 25 MMOL/L (21-32); CHLORIDE 97 MMOL/L (98-107); CREATININE 0.7 MG/DL (0.55-1.30); SODIUM 131 MMOL/L (136-145)
[2018-10-31 15:28] LABS: COLOR,URINE YELLOW
[2018-10-31] MEDS ORDERED: Azithromycin 500 MG in NS 275 ML IV ONE (15:30)
[2018-10-31] MEDS ORDERED: Piperacillin/Tazobactam 3.375 GM in NS 110 ML IVPB ONE (15:30)
[2018-10-31 15:36] LABS: ALANINE AMINOTRANSFERASE 25 U/L (12-78); ALBUMIN 2.9 G/DL (3.4-5.0); ALBUMIN/GLOBULIN RATIO 0.6 (1.0-2.7); ALKALINE PHOSPHATASE 86 U/L (46-116); ASPARTATE AMINO TRANSFERASE 39 U/L (15-37); BILIRUBIN,TOTAL 0.5 MG/DL (0.2-1.0); CKMB 1.5 NG/ML (0.0-3.6); CREATINE KINASE 99 U/L (26-308)
--- NOTE | 2018-10-31 15:38 | Diagnostic Imaging Report ---
Indication: Shortness of breath Technique: One view of the chest Comparison: . 05/17/2018 Findings: Interim development of fairly dense consolidation in the right midlung and left lateral lower lung. Probable chronic interstitial fibrotic changes are again demonstrated at both lung bases. Mild prominence to the interstitial markings in the upper lungs probably on the basis of senescent changes. The heart is upper limits normal in size. There may be some pleural fluid bilaterally as well. Severe degenerative changes of both shoulders are again noted Impression: Bilateral infiltrates, superimposed on a background of previously described chronic fibrotic changes Possible small bilateral pleural effusions Other stable findings as described Findings discussed by phone with Dr. Oleary in the emergency room at the time of interpretation
[2018-10-31 15:43] VITALS: BP 136/51
--- NOTE | 2018-10-31 15:58 | Diagnostic Imaging Report ---
Indication: Syncope, head trauma Technique: spiral acquisitions obtained through the brain. Angled axial and coronal 5 x 5 mm slices were reconstructed. No IV contrast utilized. Radiation dose was minimized using automated exposure control Total dose length product 1457.02 mGycm. CTDIvol(s) 70.38 mGy Comparison: 04/12/2015 FINDINGS: No acute hemorrhage or edema. No mass effect or midline shift. There is age-related enlargement of the ventricles and extra axial CSF spaces. There is periventricular deep white matter ischemic change. Normal singh-white differentiation. Visualized orbits are unremarkable. There is right frontal sinus opacification and minimal ethmoid mucosal disease. Intact calvarium. The mastoids are clear. When compared to prior exam, the frontal sinus disease is a new finding IMPRESSION: Chronic and age-related changes. Negative for acute intracranial bleed or mass effect The CT scanner at [facility] is accredited by the [employer] and the scans are performed using protocols designed to limit radiation exposure to as low as reasonably achievable to attain images of sufficient resolution adequate for diagnostic evaluation
[2018-10-31 17:10] VITALS: BP 128/63
--- NOTE | 2018-10-31 18:20 | Emergency Room Report ---
History of Present Illness General Chief Complaint: Generalized Weakness Source: Patient, Medical Record, EMS Present Illness HPI 88-year-old male presents ED for evaluation. Patient brought in by EMS secondary to fall. Patient states he went to the grocery store today and when was pushing a shopping cart he states his "legs gave out" and he fell forward. Scrapes on his face. Denies LOC. States he normally uses a walker. States he feels weak. Per EMS O2 sats low. Patient notes he's been coughing. States that he was admitted here this year for ammonia. Denies chest pain. No other aggravating relieving factors. Denies any other associated symptoms Allergies: Coded Allergies: No Known Allergies (Unverified , 04/12/15) Patient History Past Medical History: HTN Past Surgical History: none Pertinent Family History: none Social History: Denies: smoking, alcohol use, drug use Immunizations: UTD Reviewed Nursing Documentation: PMH: Agreed; PSxH: Agreed Nursing Documentation-PMH Hx Cardiac Problems: Yes Hx Hypertension: Yes Hx COPD: No - weakness Hx Cancer: No Hx Gastrointestinal Problems: Yes Hx Neurological Problems: Yes Hx Weakness: Yes Hx Fatigue: Yes Review of Systems All Other Systems: negative except mentioned in HPI Physical Exam Vital Signs Date Time Temp Pulse Resp B/P (MAP) Pulse Ox O2 Delivery O2 Flow Rate FiO2 10/31/18 13:50 99.0 76 24 101/58 70 Room Air 10/31/18 14:10 2.0 10/31/18 14:31 28 Sp02 EP Interpretation: reviewed, normal General Appearance: no apparent distress, alert, GCS 15, non-toxic Head: other - abrasions to face Eyes: bilateral eye normal inspection, bilateral eye PERRL ENT: hearing grossly normal, normal pharynx, no angioedema, normal voice Neck: full range of motion, supple/symm/no masses Respiratory: crackles Cardiovascular #1: regular rate, rhythm, no edema Cardiovascular #2: 2+ carotid (R), 2+ carotid (L), 2+ radial (R), 2+ radial (L) , 2+ dorsalis pedis (R), 2+ dorsalis pedis (L) Gastrointestinal: normal bowel sounds, non tender, soft, non-distended, no guarding, no rebound Rectal: deferred Genitourinary: normal inspection, no CVA tenderness Musculoskeletal: back normal, gait/station normal, normal range of motion, non- tender Neurologic: alert, oriented x3, responsive, motor strength/tone normal, sensory intact, speech normal Psychiatric: judgement/insight normal, memory normal, mood/affect normal, no suicidal/homicidal ideation Reflexes: 3+ bicep (R), 3+ bicep (L), 3+ tricep (R), 3+ tricep (L), 3+ knee (R) , 3+ knee (L) Skin: normal color, no rash, warm/dry, well hydrated Lymphatic: no adenopathy Medical Decision Making Diagnostic Impression: Primary Impression: Pneumonia Qualified Codes: J18.9 - Pneumonia, unspecified organism Additional Impressions: Episode of generalized weakness Head injury Qualified Codes: S09.90XA - Unspecified injury of head, initial encounter ER Course Hospital Course 88-year-old M presenting to ED with SOB, cough, weakness, s/p fall Differential diagnoses include: Pneumonia, CHF exacerbation, pneumothorax, fluid overload Clinical course Patient placed on stretcher. On court recording monitor. After initial history and physical, I ordered nebulizer treatments. I ordered labs, IV fluids, EKG, chest x-ray, blood cultures, UA. Patient placed on nasal cannula with O2 saturation improving Labs -no leukocytosis noted, hemoglobin/hematocrit stable, electrolytes okay, lactate okay, troponins 0.018, BNP 1251 CXR - bilateal infiltrates CT head- no cute process EKG - NSR, no acute ischemic changes interpreted by me given abx. given IVFS discussed case with PMD Dr Peres. he is requesting transfer to [facility]. patient will be transferred I feel this is a highly complex case requiring extensive working including EKG/ Rhythm strip, Xray/CT/US, Blood/urine lab work, repeat exams while in ED, and administration of strong opiates/narcotics for pain control, admission to hospital or close patient follow up. Diagnosis - pneumonia, episode of generalized weakness, head injury transferred in serious condition Labs Test 10/31/18 14:45 10/31/18 14:50 Urine Color Yellow Urine Appearance Clear Urine pH 6 (4.5-8.0) Urine Specific [place] 1.015 (1.005-1.035) Urine Protein 2+ (NEGATIVE) Urine Glucose (UA) Negative (NEGATIVE) Urine Ketones Negative (NEGATIVE) Urine Blood 2+ (NEGATIVE) Urine Nitrite Negative (NEGATIVE) Urine Bilirubin Negative (NEGATIVE) Urine Urobilinogen Normal MG/DL (0.0-1.0) Urine Leukocyte Esterase Negative (NEGATIVE) Urine RBC 10-15 /HPF (0 - 0) Urine WBC 0-2 /HPF (0 - 0) Urine Squamous Epithelial Cells None /LPF (NONE/OCC) Urine Bacteria None /HPF (NONE) White Blood Count 10.1 K/UL (4.8-10.8) Red Blood Count 5.07 M/UL (4.70-6.10) Hemoglobin 12.7 G/DL (14.2-18.0) Hematocrit 39.4 % (42.0-52.0) Mean Corpuscular Volume 78 FL (80-99) Mean Corpuscular Hemoglobin 25.0 PG (27.0-31.0) Mean Corpuscular Hemoglobin Concent 32.1 G/DL (32.0-36.0) Red Cell Distribution Width 12.6 % (11.6-14.8) Platelet Count 129 K/UL (150-450) Mean Platelet Volume 8.1 FL (6.5-10.1) Neutrophils (%) (Auto) 82.9 % (45.0-75.0) Lymphocytes (%) (Auto) 9.3 % (20.0-45.0) Monocytes (%) (Auto) 6.1 % (1.0-10.0) Eosinophils (%) (Auto) 0.5 % (0.0-3.0) Basophils (%) (Auto) 1.3 % (0.0-2.0) Sodium Level 131 MMOL/L (136-145) Potassium Level 5.0 MMOL/L (3.5-5.1) Chloride Level 97 MMOL/L (98-107) Carbon Dioxide Level 25 MMOL/L (21-32) Anion Gap 9 mmol/L (5-15) Blood Urea Nitrogen 24 mg/dL (7-18) Creatinine 0.7 MG/DL (0.55-1.30) Estimat Glomerular Filtration Rate mL/min (>60) Glucose Level 100 MG/DL (74-106) Lactic Acid Level 1.50 mmol/L (0.4-2.0) Calcium Level 8.9 MG/DL (8.5-10.1) Total Bilirubin 0.5 MG/DL (0.2-1.0) Aspartate Amino Transf (AST/SGOT) 39 U/L (15-37) Alanine Aminotransferase (ALT/SGPT) 25 U/L (12-78) Alkaline Phosphatase 86 U/L (46-116) Total Creatine Kinase 99 U/L (26-308) Creatine Kinase MB 1.5 NG/ML (0.0-3.6) Creatine Kinase MB Relative Index 1.5 Troponin I 0.018 ng/mL (0.000-0.056) Pro-B-Type Natriuretic Peptide 1251 pg/mL (0-125) Total Protein 7.6 G/DL (6.4-8.2) Albumin 2.9 G/DL (3.4-5.0) Globulin 4.7 g/dL Albumin/Globulin Ratio 0.6 (1.0-2.7) EKG Diagnostic Results Rate: normal Rhythm: NSR ST Segments: no acute changes ASA given to the pt in ED: No Rhythm Strip Diag. Results EP Interpretation: yes Rhythm: NSR, no PVC's, no ectopy Chest X-Ray Diagnostic Results Chest X-Ray Diagnostic Results : Chest X-Ray Ordered: Yes # of Views/Limited/Complete: 1 View Indication: Shortness of Breath EP Interpretation: Yes Interpretation: no pneumothorax, other - bilateral effusion Impression: Other - pneumonia Electronically Signed by: Electronically signed by Raul Oleary MD CT/MRI/US Diagnostic Results CT/MRI/US Diagnostic Results : Imaging Test Ordered: CT Head Impression no acute process Last Vital Signs Date Time Temp Pulse Resp B/P (MAP) Pulse Ox O2 Delivery O2 Flow Rate FiO2 10/31/18 17:10 99.0 73 21 128/63 96 Nasal Cannula 2.0 28 Status: improved Disposition: XFER SHT-TRM HOSP Condition: Serious Referrals: NON PHYSICIAN (PCP) Raul Oleary MD Oct 31, 2018 18:20
[2018-10-31 18:46] VITALS: BP 121/59
[2018-10-31 20:15] VITALS: BP 127/61
--- NOTE | 2018-11-01 16:34 | Cardiology Report ---
APPROVED REPORT EKG Measurement Heart [id number] Sinus rhythm with 1st degree AV block Otherwise normal ECG
== END 2018-10-31 20:15 | disposition short-term general hospital (02) ==
LOC: EDBD 13:50 → EDBEDREQ 14:17 → EMR 14:35
DX: J18.9 Pneumonia, unspecified organism (principal); S00.81XA Abrasion of other part of head, initial encounter; W19.XXXA Unspecified fall, initial encounter; Y92.89 Other specified places as the place of occurrence of the external cause; I10 Essential (primary) hypertension
CPT/HCPCS: 36415; 70450; 71045; 80053; 81003; 82550; 82553; 83605; 83880; 84484; 85025; 86710; 87040; 93005; 94640; 94664; 96365; 96368; 99284; J0456; J2543; J7040; J7050